=== PATIENT | male | born 1950 | race Caucasian/White ===

== ENCOUNTER 2020-01-15 15:32 | Outpatient (CLI) | payer MEDICARE, SELFPAY ==
--- NOTE | ~2020-01-15 | XR_ITS ---
XR_CERV2-3V_CR 01/15/2020 15:59 Indication: Neck pain Procedure: 3 views cervical spine Comparison: No prior studies for comparison. Findings: Straightening of cervical lordosis. No prevertebral soft tissue abnormality. There is disc narrowing at C5-6 and C6-7. No significant alteration of alignment with flexion. Lung apices are norm al. There is moderate multilevel facet and uncinate hypertrophy most pronounced at C5-6. There is deg enerative anterolisthesis at C4-5. Impression: 1: Moderate cervical spondylosis. Reviewed, dictated and finalized at location A. Impression: 1: Moderate cervical spondylosis.
== END 2020-01-15 15:33 | disposition home or self-care (01) ==
LOC: ANHIMG 15:33
PROVIDERS: PCP Family Medicine
DX: M79.602 Pain in left arm (principal); M47.812 Spondylosis without myelopathy or radiculopathy, cervical region
CPT/HCPCS: 72040

== ENCOUNTER → 2022-03-28 13:54 | Outpatient (CLI) | payer MEDICARE, SELFPAY ==
--- NOTE | ~2022-03-28 | CT_ITS ---
EXAMINATION: CT brain wo/w con DATE: 03/28/2022 14:34 INDICATION: Dizziness and giddiness. Loss of balance. TECHNIQUE: Computed tomography (CT) of the head was performed without and with 100 mL Omnipaque 350 i ntravenous contrast. The mA was adjusted according to patient size. Iterative reconstruction techniqu e was employed. The dose-length product was 1199.14 mGy-cm. COMPARISON: None FINDINGS: Subjective dolichocephaly is noted. There is no intracranial hemorrhage, acute infarction, or abnormal intracranial mass lesion. There are linear areas of chronic encephalomalacia in the front al lobes. There are scattered areas of low attenuation in the cerebral white matter. The ventricles a re normal in size. The orbits are normal. There is mild mucosal thickening in the ethmoid sinuses. Th e mastoid air cells are normal. IMPRESSION: 1. Linea areas of chronic encephalomalacia in the frontal lobes, which may be from old ventriculostom y catheters. Reviewed, dictated and finalized at location A. IMPRESSION: 1. Linea areas of chronic encephalomalacia in the frontal lobes, which may be f rom old ventriculostomy catheters.
[2022-03-28 14:22] LABS: Estimated Glomerular Filt Rate > 60
== END ==
PROVIDERS: PCP Internal Medicine; Visit Provider Internal Medicine
DX: R42 Dizziness and giddiness (principal)
CPT/HCPCS: 70470; Q9967

== ENCOUNTER → 2022-03-30 12:43 | Outpatient (CLI) | payer MEDICARE, SELFPAY ==
--- NOTE | ~2022-03-30 | US_ITS ---
EXAMINATION: US carotid duplex BI DATE: 03/30/2022 13:20 INDICATION: Dizziness and confusion TECHNIQUE: Grayscale, color Doppler, and pulsed Doppler images of the cervical carotid arteries were obtained. The degree of vessel stenosis is placed in one of the following categories: normal, <50%, 5 0-69%, >=70% but less than near-occlusion, near-occlusion, or total occlusion. Note that percent sten osis relative to normal distal artery lumen diameter is indirectly measured from velocity measurement s as described by Kevon, et al. Radiology 2003; 229:340-346. Notes: Normal: Peak systolic velocity <125 centimeters/sec and no plaque <50%. Peak systolic velocity <125 ( EDV <40; ICA/CCA PSV ratio <2.0; used these factors only a tandem lesions or low cardiac output or co ntralateral disease) 50-69 %: PSV 125-230 (EDV 40-100; ratio 2-4) >= 70% but less than near occlusion: PSV greater than 230 (EDV > 100; ratio> 4.0) Near Occlusion: PSV that is variable; markedly narrowed lumen Occlusion: Absent flow on color/spectral Doppler and no lumen on damon scale. COMPARISON: None. FINDINGS: RIGHT: The right common carotid artery (CCA) peak systolic velocity (PSV) is 99 cm/s. The right internal car otid artery (ICA) PSV is 73 cm/s. The right ICA end-diastolic velocity (EDV) is 17 cm/s. The right IC A/CCA PSV ratio is 0.7. The external carotid artery (ECA) PSV is 82 cm/s. There is antegrade flow in the right vertebral artery. LEFT: The left CCA PSV is 100 cm/s. The left ICA PSV is 99 cm/s. The left ICA EDV is 22 cm/s. The left ICA/ CCA PSV ratio is 1.0. The ECA PSV is 101 cm/s. There is antegrade flow in the left vertebral artery. IMPRESSION: 1. Less than 50% stenosis in the right internal carotid artery by sonographic criteria. 2. Less than 50% stenosis in the left internal carotid artery by sonographic criteria. Reviewed, dictated and finalized at location A. IMPRESSION: 1. Less than 50% stenosis in the right internal carotid artery by sonographic samira leonardo. 2. Less than 50% stenosis in the left internal carotid artery by sonographic nicci fernandez.
== END ==
PROVIDERS: PCP Internal Medicine; Visit Provider Internal Medicine
DX: R42 Dizziness and giddiness (principal); I65.23 Occlusion and stenosis of bilateral carotid arteries
CPT/HCPCS: 93880

== ENCOUNTER 2022-05-04 07:21 | Outpatient (CLI) | payer MEDICARE, SELFPAY ==
--- NOTE | ~2022-05-04 | CT_ITS ---
EXAMINATION: CTA brain carotid DATE: 05/04/2022 07:50 INDICATION: Dizziness and giddiness. Vestibular insufficiency. TECHNIQUE: Computed tomographic angiography (CTA) of the head was performed without and with 100 mL O mnipaque-350 intravenous contrast. CTA of the neck was performed with intravenous contrast. Automated exposure control and iterative reconstruction technique were employed. The dose-length product was 1 748.80 mGy-cm. Maximum intensity projection and volume rendered 3D-reconstructions were created by eric ro technologist on a separate workstation. COMPARISON: None. FINDINGS: HEAD CTA: There is subjective dolichocephaly. There are linear areas of chronic encephalomalacia in t he frontal lobes. There is no intracranial hemorrhage, acute infarction, or abnormal intracranial mas s lesion. The ventricles are normal in size. The orbits are normal. There is mild mucosal thickening in the ethmoid sinuses. The mastoid air cells are normal. The vertebral arteries are codominant. Ther e is no significant stenosis of basilar artery or the posterior cerebral arteries. There is no signif icant stenosis of the intracranial internal carotid arteries or anterior or middle cerebral arteries. Anterior communicating artery is normal. There is no aneurysm. The posterior communicating arteries are normal. NECK CTA: There is mild scarring at the lung apices. There are no pathologically enlarged lymph nodes . There is no significant stenosis of the vertebral arteries. There is mild plaque in proximal right internal carotid artery. There is 0% stenosis of the proximal right internal carotid artery relative to normal distal artery lumen diameter (NASCET criteria). There is 0% stenosis of the proximal left i nternal carotid artery relative to normal distal artery lumen diameter. There is severe cervical spon dylosis. IMPRESSION: 1. Linear areas of chronic encephalomalacia in the frontal lobes, which may be from old ventriculosto my catheters. 2. No aneurysm or significant intracranial arterial stenosis. 3. 0% stenosis of the proximal internal carotid arteries relative to normal distal artery lumen diame ters (NASCET criteria). Reviewed, dictated and finalized at location A. IMPRESSION: 1. Linear areas of chronic encephalomalacia in the frontal lobes, which may be from old ventriculostomy catheters. 2. No aneurysm or significant intracranial arterial stenosis. 3. 0% stenosis of the proximal internal carotid arteries relative to normal dis henny artery lumen diameters (NASCET criteria).
[2022-05-04 07:44] LABS: Estimated Glomerular Filt Rate > 60
== END 2022-05-04 07:22 | disposition home or self-care (01) ==
PROVIDERS: PCP Internal Medicine; Visit Provider Student in an Organized Health Care Education/Training Program
DX: R42 Dizziness and giddiness (principal)
CPT/HCPCS: 70496; 70498; Q9967

== ENCOUNTER 2022-05-24 07:43 | Outpatient (CLI) | payer MEDICARE, SELFPAY ==
--- NOTE | ~2022-05-24 | MR_ITS ---
EXAMINATION: MR brain/brain stem wo/w con DATE: 05/24/2022 08:34 INDICATION: Severe vertigo. TECHNIQUE: Magnetic resonance imaging (MRI) of the brain and brainstem was performed without and with 20 mL MultiHance intravenous contrast. COMPARISON: Head CT 05/04/2022 FINDINGS: There is subjective dolichocephaly. There are scattered areas of nonspecific increased T2-w eighted signal intensity in the cerebral white matter, which is within normal limits for the patient' s age. There are linear areas of chronic encephalomalacia in the frontal lobes. There is no intracran ial hemorrhage, acute infarction, or abnormal intracranial mass lesion. The ventricles are normal in size. The paranasal sinuses are clear. The orbits are normal. The mastoid air cells are normal. IMPRESSION: 1. Linear areas of chronic encephalomalacia in the frontal lobes, which may be from old ventriculosto my catheters. Reviewed, dictated and finalized at location A. IMPRESSION: 1. Linear areas of chronic encephalomalacia in the frontal lobes, which may be from old ventriculostomy catheters.
== END 2022-05-24 07:44 | disposition home or self-care (01) ==
PROVIDERS: PCP Internal Medicine; Visit Provider Student in an Organized Health Care Education/Training Program
DX: R42 Dizziness and giddiness (principal); G93.89 Other specified disorders of brain
CPT/HCPCS: 70553; A9577

== ENCOUNTER 2022-06-26 13:30 | Outpatient (RCR) | payer MEDICARE, SELFPAY ==
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
--- NOTE | 2022-06-26 16:38 | PTOPDC ---
Assessment and note entered by Shakila Spicer, PT Discharge Information Assessment Status Discharge Diagnosis Vertigo Onset prior to 11/2021 Subjective Information Prior to medication, was not making any progress with dizziness. Saw ENT on 06/21, received Prednisone Steroids 14 day pack. Is on day 5, of these. Day 4 slept better, woke up more alert with a slight dizziness and felt like head cleared up. Today woke up with a slight dizziness but is better. Has also vcut back on sodium. Notes has also gone away on it's own before. Reported Pain Level Pain Score 0: Self Report Assessment PT Clinical Summary Pt has attended therapy consistently, unfortunately with now change in vertigo symptoms. He attended an ENT appt on 06/21, recieved a 14 day prednisone pack, is on day 5 and has seen significant improvements. Pt has shown improvement in cervical ROM, and muscle extensibility however as he has made no progress with therapy, we are discharging him from this POC at this time. Plan of Care PT Services Indicated No
== END 2022-06-27 11:44 | disposition home or self-care (01) ==
LOC: ANHPT 13:30
PROVIDERS: PCP Internal Medicine; Visit Provider Student in an Organized Health Care Education/Training Program
DX: R42 Dizziness and giddiness (principal)
CPT/HCPCS: 97110; 97140; 97162

== ENCOUNTER 2022-08-08 13:36 | Outpatient (CLI) | payer MEDICARE, SELFPAY ==
--- NOTE | 2022-08-08 14:27 | ECHO_ITS ---
Patient Info Name: Augustine Padilla Age: 71 years : 1950 Gender: Male Ht: 64 in Wt: 168 lbs BSA: 1.88 m2 HR: 69 bpm BP: 137 / 83 mmHg Technical Quality: Good Exam Date: 08/08/2022 2:46 PM Exam Location: [facility] Patient Status: Outpatient Admit Date: 08/08/2022 Staff Ordering Physician: Марина Hou MD Piano Mechanic Apprentice: Ana Marcano RCS Attending Provider: Марина Hou MD Exam Type: CA echo doppler w bubble study Study Info Indications - DIZZINESS LIGHTHEADEDNESS Complete two-dimensional, color flow and Doppler transthoracic echocardiogram is performed with agitated saline. Contrast/Agitated Saline Contrast/Ag. Saline: Agitated Saline Amount: 20.00 ml Administered By: Rimma Guo RDCS Existing IV Access: No New IV Access: Outer Forearm and Left Site Condition: IV removed Summary 1. Left ventricular chamber dimension is normal. 2. Left ventricular systolic function is normal, estimated at 60-65%. 3. The left ventricular diastolic function is grade I diastolic dysfunction. 4. E/e' 10 is mildly elevated. 5. There is mild aortic valve sclerosis. 6. There is trace mitral valve regurgitation. 7. No pulmonary hypertension, estimated pulmonary arterial systolic pressure is 22 mmHg. Left Ventricle E/e' 10 is mildly elevated. Left ventricular chamber dimension is normal. Left ventricular systolic function is normal, estimated at 60-65%. The left ventricular diastolic function is grade I diastolic dysfunction. Right Ventricle Right ventricular chamber dimension is normal. Right ventricular systolic function is normal. Left Atria Left atrial chamber dimension is normal. Right Atria Right atrial chamber dimension is normal. Atrial Septum Agitated saline injection with and without valsalva maneuver opacified right side cardiac chambers without shunt to left side cardiac chambers. Intact interatrial septum visualized by 2D and agitated saline imaging. Aortic Valve The aortic valve is trileaflet. There is mild aortic valve sclerosis. There is no aortic valve stenosis. There is no aortic valve regurgitation. Pulmonic Valve There is no pulmonic regurgitation. Mitral Valve There is no mitral valve stenosis. There is trace mitral valve regurgitation. Tricuspid Valve There is no tricuspid valve regurgitation. No pulmonary hypertension, estimated pulmonary arterial systolic pressure is 22 mmHg. Pericardium/Pleural There is no pericardial effusion. Inferior Vena Cava Normal inferior vena cava with >50% collapse upon inspiration consistent with normal right atrial pressure, 5 mmHg. Aorta The aortic root size at the sinus of Valsalva is normal. Left Ventricular Outflow Tract Name Value Normal LVOT 2D LVOT Diameter 2.0 cm LVOT Doppler LVOT Peak Gradient 4 mmHg LVOT Mean Gradient 2 mmHg LVOT VTI 17 cm LVOT VTI/AV VTI Ratio 0.8 LVOT Stroke Volume
--- NOTE | 2022-08-08 14:36 | ECG_ITS ---
Rate [place] QRSd QT QTc P QRS T Severity 58 175 98 [phone] 42 -59 -2 Abnormal ECG SINUS BRADYCARDIA LEFT ANTERIOR FASCICULAR BLOCK BORDERLINE T WAVE ABNORMALITY- INFERIOR LEADS BORDERLINE ECG NO PREVIOUS ECG AVAILABLE FOR COMPARISON Electronically Signed On 08-08-2022 15:47:21 CLOTH MERCERIZER BACK TENDER by Donn RAMSEY
== END 2022-08-08 13:37 | disposition home or self-care (01) ==
PROVIDERS: PCP Internal Medicine; Visit Provider Student in an Organized Health Care Education/Training Program
DX: R26.89 Other abnormalities of gait and mobility (principal); R42 Dizziness and giddiness; E78.5 Hyperlipidemia, unspecified; R55 Syncope and collapse
CPT/HCPCS: 93005; 93306; 96375

== ENCOUNTER 2025-02-10 10:57 | Outpatient (CLI) | payer MEDICARE, SELFPAY ==
--- NOTE | ~2025-02-10 | MR_ITS ---
MRI of the brain Clinical History: Personal history of healed injury Technique: Axial and sagittal T1-weighted images were acquired. These were followed by axial T2-weigh albert, diffusion weighted, gradient, and FLAIR images. COMPARISON: 05/24/2022 Findings: No acute infarct, internal hemorrhage or mass lesion evident. There are a few tiny scattere d foci of hyperintense signal in the periventricular matter, compatible with chronic low risk ischemi c change. There are 2 more prominent focal areas of T2/FLAIR hyperintensity adjacent to the frontal h orns of the lateral ventricles bilaterally, which could reflect prior ventriculostomy shunt catheter tracts. Ventricles and subarachnoid spaces are unremarkable. Orbits are unremarkable. Paranasal sinuses and m astoid air cells are clear. Major intracranial flow voids are intact. Sagittal midline structures are intact. IMPRESSION: No acute infarct, intracranial hemorrhage, or definite mass lesion. Postcontrast imaging required to better exclude small mass. 2 somewhat prominent areas of T2/FLAIR hyperintensity adjacent to the frontal horns of the bilateral lateral ventricles, suggestive of prior ventriculostomy shunt catheter tracts. Correlate with relevan t clinical history. Again, postcontrast imaging should be considered to better evaluate these finding s. Background minimal chronic microvascular ischemic change. Reviewed, dictated and finalized at location M. IMPRESSION: No acute infarct, intracranial hemorrhage, or definite mass lesion. Postcontras t imaging required to better exclude small mass. 2 somewhat prominent areas of T2/FLAIR hyperintensity adjacent to the frontal h orns of the bilateral lateral ventricles, suggestive of prior ventriculostomy s valdes catheter tracts. Correlate with relevant clinical history. Again, postcont rast imaging should be considered to better evaluate these findings. Background minimal chronic microvascular ischemic change.
== END 2025-02-10 10:58 | disposition home or self-care (01) ==
LOC: MICIMG 10:57
PROVIDERS: PCP Internal Medicine; Visit Provider Psychiatry & Neurology Neurology
DX: R90.82 White matter disease, unspecified (principal); Z87.828 Personal history of other (healed) physical injury and trauma
CPT/HCPCS: 70551

== ENCOUNTER 2025-03-17 13:03 | Outpatient (CLI) | payer MEDICARE, SELFPAY ==
--- OUTSIDE RECORDS SUMMARY | 2025-03-17 13:11 | XMS_ITS | Encounter Summary ---
Author Organization [email or web address] Address 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
--- OUTSIDE RECORDS SUMMARY | 2025-03-17 13:11 | XMS_ITS | Referral Summary ---
Author Organization [facility] Address [address] [place] [id number] Care Team Providers Care Rn Staff Name Role Phone Paul Boles MD Primary Care Provider [phone] Allergies No known active allergies Medications amLODIPine (NORVASC) 5 mg tablet 03/24/2020 Active cetirizine 10 mg capsule daily Active methylPREDNISolo ne (MEDROL DOSEPACK) 4 mg Dosepack 01/21/2020 Active multivitamin tablet Take 1 tablet by mouth daily Active traMADoL (ULTRAM) 50 mg tablet 01/21/2020 Active vilazodone (VIIBRYD) 40 mg tablet 40 mg daily Active diclofenac DR (VOLTAREN) 50 mg EC tablet Take 1 tablet (50 mg total) by mouth 2 (two) times a day Take with food 60 tablet 04/19/2020 Active meloxicam (MOBIC) 7.5 mg tablet Take 7.5 mg by mouth daily 06/29/2020 Active Active Problems No known active problems Social History Tobacco Use Types Packs/Day Years Used Date Smoking Tobacco: Never Smokeless Tobacco: Never Alcohol Use Standard Drinks/Week Comments Yes 0 (1 standard drink = 0.6 oz pur e alcohol) Personal Safety Answer Date Recorded Getting School Help Needed Not on file 11/23 Sex and Gender Information Value Date Recorded Sex Assigned at Not on file Legal Sex Male 12:12 PM CDT Gender Identity Not on file Sexual Orientation Straight 04/07/2020 1: 36 PM CDT Last Filed Vital Signs Vital Sign Reading Time Taken Comments Blood Pressure 159/98 07/21/2020 9:23 AM KINDERGARTEN ASSISTANT Pulse 74 07/21/2020 9:23 AM KINDERGARTEN ASSISTANT Temperature 36.3 C (97.3 F) 07/21/2020 7:59 AM KINDERGARTEN ASSISTANT Respiratory Rate 16 07/21/2020 9:23 AM KINDERGARTEN ASSISTANT Oxygen Saturation 100% 07/21/2020 9:23 AM KINDERGARTEN ASSISTANT Inhaled Oxygen Concentration - - Weight 77.1 kg (170 lb) 07/21/2020 7:59 AM KINDERGARTEN ASSISTANT Height 162.6 cm (5' 4) 07/11/2020 8:01 AM KINDERGARTEN ASSISTANT Body Mass Index 29.18 07/11/2020 8:01 AM KINDERGARTEN ASSISTANT Plan of Treatment Not on file Goals Goal Patient Goal Type Associated Problems Recent Progress Patient-Stated? Author CCM Chronic Pain Care Plan Chronic Care Management No Mikala Ernst, RN Note: Problem: Chronic Pain Goals: 1. Minimize further functional decline 2. Maximize quality of life 3. Control pain Strategies: - Activity/exercise program recommendation - Conservative stepwise pain medicine strategy with multi-disciplinary approach - Recommend healthy lifestyle strategies and compensatory methods as needed Reduce the likelihood of falling Lifestyle No Mikala Ernst, RN Note: Below are four things you can do to prevent falls: Begin an exercise program to improve your leg strength & balance Ask your doctor or pharmacist to review your medicines Get annual eye check-ups & update your eyeglasses Make your home safer by: Removing clutter & tripping hazards Putting railings on all stairs & adding grab bars in the bathroom Having good lighting, especially on stairs Contact your local community or senior center for information on exercise, fall prevention programs, or options for improving home safety. Insurance AETNA MEDICARE AETNA MEDICARE Care Teams Rn Staff Relationship Specialty Start Date End Date Paul Boles MD PCP - General 04/19/20
--- OUTSIDE RECORDS SUMMARY | 2025-03-17 13:11 | XMS_ITS | Clinical Summary ---
Author Organization [facility] Address [address] [place] [id number] Care Team Providers Care Pathology Laboratory Director Name Role Phone Paul Boles MD Primary Care Provider [phone] Allergies No known active allergies Medications amLODIPine [...] Active Active Problems No known active problems Surgical History Surgery Date Site/Laterality Comments TONSILLECTOMY Medical History Medical History Date Comments Depression Hypercholesteremia Migraines Arm pain Family History Medical History Relation Name Comments Alcohol abuse Father Relation Name Status Comments Father Social History Tobacco Use Types Packs/Day Years [...] Orientation Straight 04/07/2020 1: 36 PM CDT Obstetrics History Last Filed Vital Signs Vital Sign Reading Time Taken Comments Blood Pressure 159/98 07/21/2020 9:23 AM FIXTURE REPAIRER FABRICATOR Pulse 74 07/21/2020 9:23 AM FIXTURE REPAIRER FABRICATOR Temperature 36.3 C (97.3 F) 07/21/2020 7:59 AM FIXTURE REPAIRER FABRICATOR Respiratory Rate 16 07/21/2020 9:23 AM FIXTURE REPAIRER FABRICATOR Oxygen Saturation 100% 07/21/2020 9:23 AM FIXTURE REPAIRER FABRICATOR Inhaled Oxygen Concentration - - Weight 77.1 kg (170 lb) 07/21/2020 7:59 AM FIXTURE REPAIRER FABRICATOR Height 162.6 cm (5' 4) 07/11/2020 8:01 AM FIXTURE REPAIRER FABRICATOR Body Mass Index 29.18 07/11/2020 8:01 AM FIXTURE REPAIRER FABRICATOR Plan of Treatment Not on file Goals Goal Patient Goal Type Associated Problems Recent Progress Patient-Stated? Author CCM Chronic Pain Care Plan Chronic Care Management Mikala Hayes, RN Note: Problem: Chronic Pain Goals: 1. Minimize further functional decline 2. Maximize quality of life 3. Control pain Strategies: - Activity/exercise program recommendation - Conservative stepwise pain medicine strategy with multi-disciplinary approach - Recommend healthy lifestyle strategies and compensatory methods as needed Reduce the likelihood of falling Lifestyle Mikala Hayes, RN Note: Below are four things you [...] Insurance AETNA MEDICARE AETNA MEDICARE Care Teams Pathology Laboratory Director Relationship Specialty Start Date End Date Paul Boles MD PCP - General 04/19/20
--- OUTSIDE RECORDS SUMMARY | 2025-03-17 13:11 | XMS_ITS | Clinical Summary ---
Author Organization 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 Equate allergy relief Active amLODIPine (NORVASC) 5 mg tablet Take 5 mg by mouth daily. Active vilazodone (VIIBRYD) 40 mg Tablet 40 mg daily. Active multivitamin (DAILY-NICK) tablet Take 1 Tablet by mouth daily. Active Active Problems No known active problems Family History Medical History Relation Name Comments Other Maternal Grandmother Tobacco Use Other Sister Tobacco Use Relation Name Status Comments Maternal Grandmother Sister Social History Tobacco Use Types Packs/Day Years Used Date Smoking Tobacco: Never Smokeless Tobacco: Never Alcohol Use Standard Drinks/Week Comments Yes 0 (1 standard drink = 0.6 oz pure alcohol) Couple of Gin & [place] Juice per day. Sex and Gender Information Value Date Recorded Sex Assigned at Not on file Legal Sex Male 3:48 AM [employer] Gender Identity Not on file Sexual Orientation Not on file Last Filed Vital Signs Vital Sign Reading Time Taken Comments Blood Pressure 141/93 04/18/2020 10:15 AM CDT Pulse 76 04/18/2020 10:15 AM CDT Temperature 36.6 C (97.9 F) 04/18/2020 10:15 AM CDT Respiratory Rate - - Oxygen Saturation - - Inhaled Oxygen Concentration - - Weight 80.7 kg (178 lb) 04/18/2020 10:15 AM CDT Height 160 cm (5' 3) 04/18/2020 10:15 AM CDT Body Mass Index 31.53 04/18/2020 10:15 AM CDT Plan of Treatment Health Maintenance Due Date Last Done Comments DTAP/TDAP/TD VACCINES (1 - Tdap) 1971 COLORECTAL SCREENING 1997 Colorectal Cancer Screening 1997 FIT-DNA Q 3 years 1997 FIT/FOBT Q 1 year 1997 Flex Sig/CT Colonography Q 5 years 1997 ZOSTER VACCINE (1 of 2) 2002 PNEUMOCOCCAL VACCINE 50+ YEARS (2 of 2 - PPSV23) 10/1310/13/2019 INFLUENZA VACCINE (#1) 2025 RSV VACCINE (60+ or ) (1 - 1-dose 75+ series) 2027 Insurance [employer] PPO MCR Care Teams Biofuels Production Technician Relationship Specialty [place] [address] [place] [id number] PCP - General Internal Medicine 04/04/20
--- OUTSIDE RECORDS SUMMARY | 2025-03-17 13:11 | XMS_ITS | Data Portability ---
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 Plan of Treatment Reminders Order Date Submit Date Provider Last Modified By Organization Details Last Modified Time Details Appointments Any 15 2024 11:00A M Navin Boles MD Not available Not available Not available Lab CMP, serum or plasma 2023 024 [facility] (Lab), [address] [place], [address], 09/21/2024 19:42:22 CBC w/ auto diff 2023 024 [facility] (Lab), [address] [place], [address], 09/21/2024 19:27:09 TSH, serum or plasma 2023 024 [facility] (Lab), [address] [place], [address], 09/21/2024 20:13:43 lipid panel, serum 2023 024 [facility] (Lab), [address] [place], [address], 09/21/2024 19:42:26 TSH, serum or plasma 2023 024 [facility] (Lab), [address] [place], [address], 12/31/2023 20:53:46 T3, free, serum or plasma 2023 024 [facility] (Lab), [address] [place], [address], 12/31/2023 20:49:08 Referral None recorded. Procedures colonosco py screening (PROC) - Please call patient to schedule an appointme nt. Thank you. 2024 025 [facility], [address] [facility] [address], [place], [address], 01/14/2025 12:38:37 Surgeries None recorded. Imaging None recorded. Medication Orders None recorded. Patient TargetsNo targets recorded. Patient Instructions Encounter Date Encounter Id Patient Instructions Last Modified By Organization Details Last Modified Time 05/06/2024 [id number] dementia rating scale-2* Not available 05/06/2024 14:46:53 alcohol misuse* Not available 05/06/2024 14:46:53 depression screening* Not available 05/06/2024 14:46:53 multi-dimensiona l health assessment questionnaire* Not available 05/06/2024 14:46:53 Personalized [facility] Plan and Screening Recommendations Advance Directives - Do you have one? Yes I recommend consulting with an Insurance Policy Clerk, family member, or friend to assist you. Advance Directives - Do we have your advance directive on file in your health record? No, please bring in a copy at your earliest convenience Primary Prevention/Interven tion (prevents or decreases the chance of common diseases from occurring) Smoking Risk: Non Smoker Alcohol Misuse Screening: Negative Weight: Overweight try to lose 10% of your body weight Physical activity: Need more exercise/physical activity minimum of 10-20 minutes of activity that causes mild breathlessness/day Nutrition: Average Refer to attached handout DASH Diet: After Your Visit Fall Risk (screened today): Low Vaccines Pneumococcal: No further needed Influenza: Your next one in the fall of this year Chronic Disease Risks Stroke: Intermediate Risk Active diagnosis, Continue current treatment plan Heart Attack: Intermediate Risk Active diagnosis, Continue current treatment plan Clogging of the Arteries: Intermediate Risk Active diagnosis, Continue current treatment plan Diabetes: Low Risk I have no recommendations Secondary Prevention/Interven tion (detects treatable diseases before they may cause symptoms, disability, or ) Prostate Cancer Screening: Your next PSA screen at next visit Colon Cancer Screening: Colonoscopy Date Screening Last Performed: 2013 Eye Disease Screening: No Eye exam necessary Dementia Risk: Intermediate My recommendation would be to have an appointment with the Neurologist Depression Screening: Positive Active diagnosis, Continue current treatment plan [email or web address] Not available 05/06/2024 13:29:47 discussed to get hearing aids, see neurology Not available 05/06/2024 11:23:17 08/27/2024 [id number] discussed to get hearing aids, see neurology [email or web address] Not available 08/27/2024 15:21:34 12/30/2024 [id number] discussed to get hearing aids, see neurology [email or web address] Not available 12/30/2024 14:24:05 Reason for Referral None Reported. Results Created Date Observation Date Name Description Value Unit Range Abnormal Flag Note LastModifiedBy Organization Detail LastModifiedTime 10/10/19 24 10/10/2023 TSH thyroid-stim ulating hormone 4.830 uIU/m L 0.465- 4.680 high Not Available [facility] (Lab) [address] [place], [address], 10/10/2023 21:42:57 12/31/19 24 12/31/2023 T3 FREE free T3 3.5 pg/mL 2.77-5 .27 Not Available [facility] (Lab) [address] [place], [address], 12/31/2023 20:49:08 12/31/19 24 12/31/2023 TSH thyroid-stim ulating hormone 1.370 uIU/m L 0.465- 4.680 Not Available [facility] (Lab) [address] [place], [address], 12/31/2023 20:53:46 09/21/19 25 09/21/2024 CBC/C OMPLE TE BLD COUNT W/DIF F white blood cells 7.2 x10'3 /uL 4.2-10 .8 Not Available [facility] (Lab) [address] [place], [address], 09/21/2024 19:27:09 09/21/19 25 09/21/2024 CBC/C OMPLE TE BLD COUNT W/DIF F red blood cells 4.74 x10'6 /uL 4.10-5 .80 Not Available [facility] (Lab) [address] [place], [address], 09/21/2024 19:27:09 09/21/19 25 09/21/2024 CBC/C OMPLE TE BLD COUNT W/DIF F hemoglobin 14.3 g/dL 13.2-1 7.0 Not Available [facility] (Lab) [address] [place], [address], 09/21/2024 19:27:09 09/21/19 25 09/21/2024 CBC/C OMPLE TE BLD COUNT W/DIF F hematocrit 43.6 % 39.3-5 0.0 Not Available [facility] (Lab) [address] [place], [address], 09/21/2024 19:27:09 09/21/19 25 09/21/2024 CBC/C OMPLE TE BLD COUNT W/DIF F mean red cell volume 92.0 fL 80.0-9 7.0 Not Available [facility] (Lab) [address] [place], [address], 09/21/2024 19:27:09 09/21/19 25 09/21/2024 CBC/C OMPLE TE BLD COUNT W/DIF F mean red cell hemoglobin 30.2 pg 27.0-3 3.0 Not Available [facility] (Lab) [address] [place], [address], 09/21/2024 19:27:09 09/21/19 25 09/21/2024 CBC/C OMPLE TE BLD COUNT W/DIF F mean RBC HGB concentratio n 32.8 g/dL 31.0-3 6.0 Not Available [facility] (Lab) [address] [place], [address], 09/21/2024 19:27:09 09/21/19 25 09/21/2024 CBC/C OMPLE TE BLD COUNT W/DIF F red cell distribution width 13.0 % 11.8-1 5.5 Not Available [facility] (Lab) [address] [place], [address], 09/21/2024 19:27:09 09/21/19 25 09/21/2024 CBC/C OMPLE TE BLD COUNT W/DIF F platelets 333 x10'3 /uL 150-40 0 Not Available [facility] (Lab) [address] [place], [address], 09/21/2024 19:27:09 09/21/19 25 09/21/2024 CBC/C OMPLE TE BLD COUNT W/DIF F mean platelet volume 9.1 fL 9.0-12 .4 Not Available [facility] (Lab) [address] [place], [address], 09/21/2024 19:27:09 09/21/19 25 09/21/2024 CBC/C OMPLE TE BLD COUNT W/DIF F neutrophils 73.3 % 39.0-7 2.0 high Not Available [facility] (Lab) [address] [place], [address], 09/21/2024 19:27:09 09/21/19 25 09/21/2024 CBC/C OMPLE TE BLD COUNT W/DIF F lymphocytes 15.8 % 16.0-4 7.0 low Not Available [facility] (Lab) [address] [facility] [place], [address], 09/21/2024 19:27:09 09/21/19 25 09/21/2024 CBC/C OMPLE TE BLD COUNT W/DIF F monocytes 7.4 % 5.0-12 .0 Not Available [facility] (Lab) [address] [place], [address], 09/21/2024 19:27:09 09/21/19 25 09/21/2024 CBC/C OMPLE TE BLD COUNT W/DIF F eosinophils 1.9 % 1.0-7. 0 Not Available [facility] (Lab) [address] [place], [address], 09/21/2024 19:27:09 09/21/19 25 09/21/2024 CBC/C OMPLE TE BLD COUNT W/DIF F basophils 1.3 % 0.0-2. 0 Not Available [facility] (Lab) [address] [place], [address], 09/21/2024 19:27:09 09/21/19 25 09/21/2024 CBC/C OMPLE TE BLD COUNT W/DIF F immature granulocytes 0.3 % 0.00-0 .50 Not Available [facility] (Lab) [address] [place], [address], 09/21/2024 19:27:09 09/21/19 25 09/21/2024 CBC/C OMPLE TE BLD COUNT W/DIF F neutrophils, absolute count 5.28 x10'3 /uL 1.5-8. 0 Not Available [facility] (Lab) [address] [place], [address], 09/21/2024 19:27:09 09/21/19 25 09/21/2024 CBC/C OMPLE TE BLD COUNT W/DIF F lymphocytes, absolute count 1.14 x10'3 /uL 1.07-3 .43 Not Available [facility] (Lab) [address] [place], [address], 09/21/2024 19:27:09 09/21/19 25 09/21/2024 CBC/C OMPLE TE BLD COUNT W/DIF F monocytes, absolute count 0.53 x10'3 /uL 0.29-0 .99 Not Available [facility] (Lab) [address] [place], [address], 09/21/2024 19:27:09 09/21/19 25 09/21/2024 CBC/C OMPLE TE BLD COUNT W/DIF F eosinophils, absolute count 0.14 x10'3 /uL 0.02-0 .53 Not Available [facility] (Lab) [address] [place], [address], 09/21/2024 19:27:09 09/21/19 25 09/21/2024 CBC/C OMPLE TE BLD COUNT W/DIF F basophils, absolute count 0.09 x10'3 /uL 0.01-0 .08 high Not Available [facility] (Lab) [address] [place], [address], 09/21/2024 19:27:09/21/19 25 09/21/2024 CBC/C OMPLE TE BLD COUNT W/DIF F immature granulocytes ,absolute 0.02 x10'3 /uL 0.00-0 .05 Not Available [facility] (Lab) [address] [place], [address], 09/21/2024 19:27:09/21/19 25 09/21/2024 CBC/C OMPLE TE BLD COUNT W/DIF F nucleated red blood cells 0.0 % -0 Not Available [facility] (Lab) [address] [place], [address], 09/21/2024 19:27:09 09/21/19 25 09/21/2024 CBC/C OMPLE TE BLD COUNT W/DIF F NRBC# 0.00 x10'3 /uL Not Available [facility] (Lab) [address] [place], [address], 09/21/2024 19:27:09 09/21/19 25 09/21/2024 COMPR EHENS NIK METAB OLIC PANEL sodium 140 mmol/ L 137-14 5 Not Available [facility] (Lab) [address] [place], [address], 09/21/2024 19:42:22 09/21/19 25 09/21/2024 COMPR EHENS NIK METAB OLIC PANEL potassium 4.6 mmol/ L 3.5-5. 1 Not Available [facility] (Lab) [address] [place], [address], 09/21/2024 19:42:22 09/21/19 25 09/21/2024 COMPR EHENS NIK METAB OLIC PANEL chloride 105 mmol/ L 98-107 Not Available [facility] (Lab) [address] [place], [address], 09/21/2024 19:42:22 09/21/19 25 09/21/2024 COMPR EHENS NIK METAB OLIC PANEL carbon dioxide 29 mmol/ L 22-30 Not Available [facility] (Lab) [address] [place], [address], 09/21/2024 19:42:22 09/21/19 25 09/21/2024 COMPR EHENS NIK METAB OLIC PANEL anion gap 10.6 mmol/ L 14-22 low Not Available [facility] (Lab) [address] [place], [address], 09/21/2024 19:42:22 09/21/19 25 09/21/2024 COMPR EHENS NIK METAB OLIC PANEL glucose 87 mg/dL 70-99 Not Available [facility] (Lab) [address] [place], [address], 09/21/2024 19:42:22 09/21/19 25 09/21/2024 COMPR EHENS NIK METAB OLIC PANEL BUN 16 mg/dL 8-19 Not Available [facility] (Lab) [address] [place], [address], 09/21/2024 19:42:22 09/21/19 25 09/21/2024 COMPR EHENS NIK METAB OLIC PANEL creatinine 1.01 mg/dL 0.66-1 .25 Not Available [facility] (Lab) [address] [place], [address], 09/21/2024 19:42:22 09/21/19 25 09/21/2024 COMPR EHENS NIK METAB OLIC PANEL GFR >60 Refer ence Range : Gruver ge GFR Healt hy Adult : >60 mL/mi n/1.7 3 m2 Chron ic Kidne y Disea se: 15-60 mL/mi n/1.7 3 m2 Kidne y Failu re: <15/m L/min /1.73 m2 www.n iddk. nih.g ov The MDRD study equat ion has not been valid ated in child christopher <18 years of age; pregn ant women ; the elder ly >85 years of age; or in some racia l or ethni c subgr oups, such as Hisma nics. Outsi de the valid ated rancho eters , estim ated GFR is less accur ate, requi ring clini niles judgm ent on a case- by-ca se basis . Clini niles inter preta tion for other races and ages must be made by the clini lilo. The MDRD study equat ion has not been valid ated for the evalu ation of serum creat inine relat ed to nutri jarrod l statu s or medic ation usage . For perso ns <18 years of age, a pedia tric GFR calcu lator is avail able on the NK websi te: https ://jenny gomes.jovanna ramirez.precious aly/pr ofess ional s/kdo qi/gf r_cal culat or Not Available [facility] (Lab) [address] [place], [address], 09/21/2024 19:42:22 09/21/19 25 09/21/2024 COMPR EHENS NIK METAB OLIC PANEL alkaline phosphatase 77 U/L 38-126 Not Available [facility] (Lab) [address] [place], [address], 09/21/2024 19:42:22 09/21/19 25 09/21/2024 COMPR EHENS NIK METAB OLIC PANEL alanine aminotransfe rase 44 U/L 0-50 Not Available [facility] (Lab) [address] [place], [address], 09/21/2024 19:42:22 09/21/19 25 09/21/2024 COMPR EHENS NIK METAB OLIC PANEL aspartate aminotransfe rase 42 U/L 15-46 Not Available [facility] (Lab) [address] [place], [address], 09/21/2024 19:42:22 09/21/19 25 09/21/2024 COMPR EHENS NIK METAB OLIC PANEL bilirubin, total 0.90 mg/dL 0.20-1 .30 Not Available [facility] (Lab) [address] [place], [address], 09/21/2024 19:42:22 09/21/19 25 09/21/2024 COMPR EHENS NIK METAB OLIC PANEL calcium 9.1 mg/dL 8.4-10 .2 Not Available [facility] (Lab) [address] [place], [address], 09/21/2024 19:42:22 09/21/19 25 09/21/2024 COMPR EHENS NIK METAB OLIC PANEL total protein 6.7 g/dL 6.3-8. 2 Not Available [facility] (Lab) [address] [place], [address], 09/21/2024 19:42:22 09/21/19 25 09/21/2024 COMPR EHENS NIK METAB OLIC PANEL albumin 4.4 g/dL 3.0-4. 4 Not Available [facility] (Lab) [address] [place], [address], 09/21/2024 19:42:22 09/21/19 25 09/21/2024 COMPR EHENS NIK METAB OLIC PANEL globulin 2.3 g/dL 2.6-4. 2 low Not Available [facility] (Lab) [address] [place], [address], 09/21/2024 19:42:22 09/21/19 25 09/21/2024 COMPR EHENS NIK METAB OLIC PANEL A/G ratio 1.9 ratio 1.0-2. 0 Not Available [facility] (Lab) [address] [place], [address], 09/21/2024 19:42:22 09/21/19 25 09/21/2024 LIPID PANEL cholesterol 146 mg/dL 140-19 9 [facility] NSUS RECOM MENDA TION FOR DAMON STERO L: ADULT CHILD LOW RISK: <200 <170 BORDE RLINE : <200- 239 ----- HIGH RISK: >240 >200 Not Available [facility] (Lab) [address] [place], [address], 09/21/2024 19:42:25 09/21/1909/21/2024 LIPID PANEL triglyceride s 122 mg/dL 0-150 [facility]ERE NSUS REPOR T RECOM MENDA TION FOR TRIGL YCERI ALAYNA: ADULT CHILD LOW RISK: <150 ----- BODER LINE: 150-1 99 ----- HIGH RISK: >200 ----- Not Available [facility] (Lab) [address] [place], [address], 09/21/2024 19:42:25 09/21/19 25 09/21/2024 LIPID PANEL HDL cholesterol 43 mg/dL 40- Not Available [facility] (Lab) [address] [place], [address], 09/21/2024 19:42:25 09/21/19 25 09/21/2024 LIPID PANEL LDL cholesterol, calculated 79 mg/dL 0-130 [facility] CH[facility]ERE NSUS REPOR T RECOM MENDA TIONS FOR LDL: ADULT CHILD LOW RISK <130 <110 (OPTI MAL LDL) <100 ----- BORDE RLINE : 130-1 59 ----- HIGH RISK: >160 >130 A TRIGL YCERI DE RESUL T >400 INVAL IDATE S THE CALCU LATIO N FOR LDL FRACT IONAT ION - THE LDL RESUL T WILL NOT BE REPOR REBECCA. Not Available [facility] (Lab) [address] [place], [address], 09/21/2024 19:42:25 09/21/19 25 09/21/2024 TSH thyroid-stim ulating hormone 1.870 uIU/m L 0.465- 4.680 Not Available [facility] (Lab) [address] [place], [address], 09/21/2024 20:13:43 10/30/19 24 10/29/2023 audio gram + tympa nogra m No observ ation record ed. [email or web address] [facility] [address] [facility] [address] [place], [address], 11/06/2023 09:32:59 11/18/19 24 11/18/2023 audio gram + tympa nogra m No observ ation record ed. [email or web address] Not Available 2023 09:28:31 02/12/20 25 02/10/2025 MRI, brain , w/o contr ast No observ ation record ed. Not Available 2024 13:21:55 Result Notes None recorded. Problems Name Problem SNOMED Code Status Onset Date Resolution Date Notes Provider Name and Address Organization Details Recorded Time Prostate specific antigen outside reference range 691896521 Completed 201903/15/2022 Not Available [facility] 3 21:34:40 Insomnia 949590765 Active 2021 Not Available [facility] 4 06:29:41 Dizziness and giddiness 212393502 Active 2021 Not Available [facility] 4 06:29:41 Finding of body mass index 962584793 Active 2021 Not Available [facility] 4 06:29:41 Hypertrig lyceridem ia 301329268 Active 2019 Not Available [facility] 4 06:29:41 Depressiv e disorder 62742050 Active 2021 Not Available [facility] 4 06:29:41 Prostate specific antigen above reference range 484246316 Active 2019 Not Available [facility] 4 06:29:41 Malignant neoplasm of prostate 042712553 Active 2021 Not Available [facility] 4 06:29:41 Dizziness 485417826 Active 2021 Not Available [facility] 4 06:29:41 Hyperlipi demia 59836061 Active 2019 Not Available [facility] 4 06:29:41 Carotid artery stenosis 00057197 Active 2021 Not Available [facility] 4 06:29:42 Rhinitis 57299682 Active 2021 Not Available [facility] 4 06:29:42 [place] m 3008606 Active 2021 Maureen espinal, RMA null, [place] [employer] [facility] 4 10:57:53 Neck pain 96323892 Active 2021 Not Available [facility] 4 06:29:42 Bilateral hearing loss 28656855 Active 2021 Not Available [facility] 4 06:29:42 Essential hypertens ion 16342131 Active 2022 Maureen Jenkinsvannesamichael kylie RMA null, [employer] [facility] 4 10:57:49 Tinnitus 94730031 Active 2022 Not Available [facility] 4 06:29:41 Memory impairmen t 081221332 Active 2022 Not Available [facility] 4 06:29:41 Hypothyro idism 88938099 Active 2022 Maureen Garzamichael espinal RMA null, [employer] [facility] 4 10:57:46 Sensorine ural hearing loss 59754708 Active 2023 Not Available [facility] 4 06:29:41 Benign paroxysma l positiona l vertigo 722259485 Active 2023 Not Available [facility] 4 06:29:41 Bilateral tinnitus 82853378627 02 Active 2023 Not Available [facility] 4 06:29:41 Vertigo 034144429 Active 2023 Char Joseph MA null, [employer] 4 15:35:19 Problem Notes None recorded. Procedures Surgical History Date Name Laterality Status Provider Name and Address Organization Details Recorded Time 4 Medicare Wellness CPT Code, subsequent completed Drea Luna RN [place] [employer] 05/06/2024 11:25:34 Imaging Results None recorded. Procedure Notes None recorded. Medical Equipment None Reported. Allergies Allergen ID Allergen Name Allergen Category Reaction Reaction Severity Criticality Documentation Date Start Date Code Code System Note Provider Name and Address Organization Details Recorded Time 72766 amoxicill in medicatio n rash Not available Not available 04/12/2023 723 RxNorm Navin Boles MD [address] [place] [address], [phone] [place] [address] [employer] [facility] 3 11:02:00 Medications Name Sig Start Date Stop Date Status Note LastModified by Organization Details LastModified Time amoxicillin 500 mg capsule TAKE 1 CAPSULE BY MOUTH THREE TIMES A DAY 08/12 completed Not Available Not Available Not Available prednisone 10 mg tablet TAKE 1 TABLET BY MOUTH EVERY DAY IN THE MORNING DAYS 1-7 08/10 completed Not Available Not Available Not Available atorvastati n 20 mg tablet TAKE 1 TABLET DAILY active Not Available Not Available No t Available donepezil 5 mg tablet TAKE 1 TABLET BY MOUTH EVERY MORNING active Not Available Not Available No t Available clindamycin HCl 300 mg capsule TAKE 1 CAPSULE BY MOUTH FOUR TIMES A DAY UNTIL FINISHED STOP MEDICATIO N IF DIARRHEA OCCURS 11/14 completed Not Available Not Available Not Available trazodone 50 mg tablet TAKE 1 TABLET DAILY NEEDED 08/12 completed Not Available Not Available Not Available azithromyci n 250 mg tablet TAKE 2 TABLETS BY MOUTH TODAY, THEN TAKE 1 TABLET DAILY FOR 4 DAYS DIRECTED 12/30 completed Not Available Not Available Not Available hydrocodone 5 mg-acetamin ophen 325 mg tablet TAKE 1 TABLET BY MOUTH EVERY 6 HOURS NEEDED active Not Available Not Available No t Available phenazopyri dine 200 mg tablet TAKE 1 TABLET BY MOUTH THREE TIMES DAILY NEEDED FOR BURNING active Not Available Not Available No t Available prednisone 5 mg tablet TAKE 1 TABLET BY MOUTH EVERY DAY IN THE MORNING ON DAYS 8-14 08/10 completed Not Available Not Available Not Available topiramate 25 mg tablet TAKE 1 TABLET BY MOUTH TWICE A DAY 08/12 completed Not Available Not Available Not Available meclizine 12.5 mg tablet TAKE 1 TABLET BY MOUTH 3 TIMES A DAY NEEDED active Not Available Not Available No t Available amlodipine 5 mg tablet TAKE 1 TABLET DAILY active Not Available Not Available No t Available sulfamethox azole 800 mg-trimetho prim 160 mg tablet TAKE 1 TABLET BY MOUTH TWO TIMES DAILY, START 11/26 active Not Available Not Available No t Available tramadol 50 mg tablet Take 1 tablet every 6 hours by oral route as needed. active Not Available Not Available No t Available levothyroxi ne 25 mcg tablet TAKE 1 TABLET BY MOUTH EVERY DAY 10/11 completed Not Available Not Available Not Available meloxicam 7.5 mg tablet TAKE 1 TABLET BY MOUTH EVERY DAY active Not Available Not Available No t Available ceftriaxone 1 gram solution for injection Take 1 g by injection route. 04/12 completed Not Available Not Available Not Available famotidine 20 mg tablet TAKE 1 TABLET BY MOUTH EVERYDAY AT BEDTIME active Not Available Not Available No t Available trazodone 100 mg tablet TAKE 1 TABLET BY MOUTH EVERY DAY AT BEDTIME NEEDED active Not Available Not Available No t Available levothyroxi ne 50 mcg tablet TAKE 1 TABLET BY MOUTH EVERY DAY active Not Available Not Available No t Available Xylocaine 20 mg/mL (2 %) injection solution Take 10 mL by injection route. 12/30 completed Not Available Not Available Not Available diclofenac sodium 50 mg tablet,boo yed release 05/19 completed Not Available Not Available Not Available ibuprofen 600 mg tablet TAKE 1 TABLET BY MOUTH THREE TIMES A DAY active Not Available Not Available No t Available gentamicin 40 mg/mL injection solution Take 80 mg by injection route. 04/12 completed Not Available Not Available Not Available methylpredn isolone 4 mg tablets in a dose pack TAKE 6 TABLETS ON DAY 1 DIRECTED ON PACKAGE AND DECREASE BY 1 TAB EACH DAY FOR A TOTAL OF 6 DAYS active Not Available Not Available No t Available cyclobenzap rine 5 mg tablet Take 1 tablet 3 times a day by oral route. active Not Available Not Available No t Available bupropion HCl XL 300 mg 24 hr tablet, extended release TAKE 1 TABLET BY MOUTH EVERY DAY IN THE MORNING active Not Available Not Available No t Available bupropion HCl XL 150 mg 24 hr tablet, extended release TAKE 1 TABLET BY MOUTH EVERY DAY IN THE MORNING active Not Available Not Available No t Available aripiprazol e 2 mg tablet TAKE ONE TABLET BY MOUTH EVERY MORNING 04/17 completed Not Available Not Available Not Available Suprep Bowel Prep Kit 17.5 gram-3.13 gram-1.6 gram oral solution USE DIRECTED. 10/13 completed Not Available Not Available Not Available vilazodone 40 mg tablet TAKE 1 TABLET BY MOUTH EVERY DAY WITH FOOD active Not Available Not Available No t Available vilazodone 20 mg tablet TAKE 1 TABLET BY MOUTH EVERY DAY WITH FOOD active Not Available Not Available No t Available Allergy Relief (cetirizine ) 10 mg capsule Take 1 capsule every day by oral route. 2019 active Not Available Not Available Not Avai lable biotin 1,000 mcg chewable tablet Take 1 tablet every day by oral route. 01/20 completed Not Available Not Available Not Available One-A-Day Men's 50 Plus(vit K) QD 2019 active Not Available Not Available Not Avai lable ID NOW COVID-19 Test Kit TEST DIRECTED 04/20 completed Not Available Not Available Not Available Fluad Quad [id number](6 5yr up)(PF) 60 mcg (15 mcg x 4)/0.5mL IM syringe PHARMACY ADMINISTE RED active Not Available Not Available No t Available Vitals Date Recorded Body height Body mass index (BMI) Body weight Provider Name and Address Organization Details Last Updated DateTime 10/16/2023 162.56 cm 29.2 kg/m2 92743.7 g Shelbi Benjamin RN [facility] 10/16/2023 11:53:30 Date Recorded Body height Body mass index (BMI) Body weight Body temperature Heart rate Oxygen saturation Oxygen saturation in Arterial blood by Pulse oximetry Systolic And Diastolic Provider Name and Address Organization Details Last Updated DateTime 4 162.56 cm 28.8 kg/m2 31347.5 2 g 96.7 [degF] 75 /min 98 % 98 % 110/70 mm[Hg] Maureen oswald Michael [facility] 4 10:52:31 Date Recorded Body height Body mass index (BMI) Body weight Body temperature Heart rate Oxygen saturation Oxygen saturation in Arterial blood by Pulse oximetry Systolic And Diastolic Provider Name and Address Organization Details Last Updated DateTime 5 162.56 cm 27.5 kg/m2 81174.7 8 g 97.3 [degF] 72 /min 97 % 97 % 124/70 mm[Hg] Maureen oswald Michael [facility] 5 14:22:11 Date Recorded Body height Body mass index (BMI) Body weight Body temperature Heart rate Oxygen saturation Oxygen saturation in Arterial blood by Pulse oximetry Systolic And Diastolic Provider Name and Address Organization Details Last Updated DateTime 4 162.56 cm 28.5 kg/m2 85040.3 3 g 98.2 [degF] 76 /min 98 % 98 % 116/72 mm[Hg] Ana Chakraborty [facility] 4 10:51:05 Date Recorded Body height Body mass index (BMI) Body weight Body temperature Heart rate Oxygen saturation Oxygen saturation in Arterial blood by Pulse oximetry Systolic And Diastolic Provider Name and Address Organization Details Last Updated DateTime 4 162.56 cm 28.7 kg/m2 75265.9 3 g 97.5 [degF] 85 /min 96 % 96 % 120/60 mm[Hg] Maureen Garza margret [employer] 4 15:20:47 Social History Question Answer Notes LastModified by Organization Details LastModified Time Tobacco Smoking Status Never Smoker Charmaine [email or web address] [employer] 04/17/2023 10:10:43 Do You Have An Advance Directive? Yes Requested Copy To Bring To Office [email or web address] Information not available 05/06/2024 How Many Years Have You Consumed Alcohol? 53 Age 20 [email or web address] Information not available 05/06/2024 Do You Wear A Helmet When Biking? Yes No Longer Rides [email or web address] Information not available 05/06/2024 Are You Blind Or Do You Have Difficulty Seeing? No Information not available 04/17/2023 Is Blood Transfusion Acceptable In An Emergency? Yes [email or web address] Information not available 05/06/2024 What Is Your Level Of Caffeine Consumption? Moderate [id number] Information not available 11/07/2022 Are You Deaf Or Do You Have Serious Difficulty Hearing? Yes Has Seen ENT And Swage Tender [email or web address] Information not available 05/06/2024 What Type Of Diet Are You Following? REGULAR [id number] Information not available 11/07/2022 What Is The Highest Grade Or Level Of School You Have Completed Or The Highest Degree You Have Received? [id number] Information not available 04/17/2023 How Many Days Of Moderate To Strenuous Exercise, Like A Brisk Walk, Did You Do In The Last 7 Days? 0 [email or web address] Information not available 05/06/2024 Have There Been Any Changes To Your Family Or Social Situation? No Information not available 04/17/2023 What Is The Fluoride Status Of Your Home? Fluoridated Information not available 04/17/2023 Are There Any Guns Present In Your Home? Yes [email or web address] Information not available 05/06/2024 Do You Use Insect Repellent Routinely? No Information not available 04/17/2023 Where Do You Live? SingleLevelHouse With Basement Information not available 04/17/2023 Presence Of Domestic Violence No [email or web address] Information not available 05/06/2024 Guns Present In The Home? Yes [email or web address] Information not available 05/06/2024 Are You Able To Care For Yourself? Yes [email or web address] Information not available 05/06/2024 Are You Blind Or Do Yo Have Difficulty Seeing? No [email or web address] Information not available 05/06/2024 Are You Deaf Or Do You Have Serious Difficulty Hearing? Yes [email or web address] Information not available 05/06/2024 General Stress Level? Low [email or web address] Information not available 05/06/2024 Live Alone Of With Others? Alone [email or web address] Information not available 05/06/2024 Do You Have A Medical Power Of Insurance Policy Clerk? Yes [email or web address] Information not available 05/06/2024 What Was The Date Of Your Most Recent Tobacco Screening? 05/06/2024 [email or web address] Information not available 05/06/2024 How Many Children Do You Have? 1 [email or web address] Information not available 05/06/2024 Have You Ever Been Counseled For Unhealthy Alcohol Use? No Information not available 04/17/2023 Do You Have Any Pets? Yes Information not available 04/17/2023 Do You Use Protection During Sex? No [email or web address] Information not available 05/06/2024 What Is Your Relationship Status? [email or web address] [id number] Information not available 11/07/2022 Do You Use Your Seat Belt Or Car Seat Routinely? Yes Information not available 04/17/2023 Are You Sexually Active? Yes [email or web address] Information not available 05/06/2024 Do You Have Smoke And Carbon Monoxide Detectors In Your Home? Yes Information not available 04/17/2023 Are You Passively Exposed To Smoke? No Information not available 04/17/2023 Are There Any Smokers In Your House? No Information not available 04/17/2023 What Types Of Sporting Activities Do You Participate In? None [email or web address] Information not available 05/06/2024 Do You Use Sunscreen Routinely? No Information not available 04/17/2023 Has Tobacco Cessation Counseling Been Provided? No Information not available 04/17/2023 Have You Recently Traveled Abroad? No Information not available 04/17/2023 Do You Have Difficulty Walking Or Climbing Stairs? No Information not available 04/17/2023 Do You Have Any Dietary Restrictions? No Information not available 04/17/2023 How Many Days In The Past Year Have You Consumed 5 Or More Drinks? 0 [email or web address] Information not available 05/06/2024 Sex: Male Functional Status Question Answer Note LastModified by Organizat ion Details LastModified Time Do you use any illicit or recreational drugs? No Information not available 04/17/2023 Do you or have you ever used any other forms of tobacco or nicotine? No Information not available 04/17/2023 What is your level of alcohol consumption? Occasional [id number] Information not available 11/07/2022 Are you currently employed? No [email or web address] Information not available 05/06/2024 Do you have transportation difficulties? No Information not available 04/17/2023 Are you able to walk? [email or web address] Information not available 04/17/2023 Do you have difficulty doing errands alone? No Information not available 04/17/2023 Are you able to care for yourself? Yes Information n ot available 04/17/2023 What is your occupation? Retired Information not available 04/17/2023 Do you have difficulty dressing or bathing? No Information not available 04/17/2023 What is your exercise level? None [email or web address] Information not available 05/06/2024 Mental Status Question Answer Note LastModified by Organizat ion Details LastModified Time Do you feel stressed (tense, restless, nervous, or anxious, or unable to sleep at night)? [id number] [email or web address] Information not available 05/06/2024 Do you have difficulty concentrating, remembering or making decisions? Yes has gotten worse since senior care-has seen neurologist [email or web address] Information not available 05/06/2024 Family History Relationship Description Onset Age of this Age Resolved Age Notes LastModified by Organization Details LastModified Time Mother Depressive disorder [id number] Not available 11/07/2022 21:34:07 Notes:NO ENT Medical History Condition Response ARTHRITIS Y CANCER: SPECIFY Y HYPERTENSION Y Immunizations Vaccine Type Date Status Note Provider Nam e and Address Organization Details Recorded Time COVID-19, mRNA, LNP-S, PF, 100 mcg/0.5mL dose or 50 mcg/0.25mL dose 1 completed Not Available [facility] 10/21/2023 06:29:42 COVID-19, mRNA, LNP-S, PF, 100 mcg/0.5mL dose or 50 mcg/0.25mL dose 1 completed Not Available [facility] 10/21/2023 06:29:42 COVID-19, mRNA, LNP-S, PF, 100 mcg/0.5mL dose or 50 mcg/0.25mL dose 1 completed Not Available [facility] 10/21/2023 06:29:42 Influenza, split virus, quadrivalent, preservative 0 completed Not Available [facility] 10/21/2023 06:29:42 pneumococcal polysaccharide PPV23 2 completed Not Available [facility] 10/21/2023 06:29:42 Pneumococcal conjugate PCV 13 0 completed Not Available [facility] 10/21/2023 06:29:42 Respiratory syncytial virus (RSV) vaccine, unspecified 5 completed JOHN Abbott, [place] [facility] 01/06/2025 15:39:24 Past Encounters Encounter ID Performer Location Encounter Start Date Encounter Closed Date Diagnosis/Indication Diagnosis SNOMED-CT Code Diagnosis ICD10 Code Diagnosis Note [id number] MD GUERRERO Jackson_[facility] [place] [place] Internal Med [address] [facility] [place] [address] 04/20/2021 00:00:00 04/20/2021 13:50:24 [id number] MD GUERRERO Jackson_[facility] [address] [facility] [place] [address] 08/17/2021 00:00:00 08/17/2021 10:47:19 [id number] MD GUERRERO Jackson_[facility] [place] [place] Internal Med [facility] [address] [facility] [place] [address] 12/19/2021 00:00:00 12/19/2021 13:17:41 [id number] Navin Boles MD S_[facility] [place] [place] Internal [place] [id number] [facility] [place] [address] 03/21/2022 00:00:00 03/21/2022 09:51:32 [id number] Navin Boles MD S_[facility] [place] [place] Internal [place] [address] [facility] [place] [address] 04/10/2022 00:00:00 04/10/2022 13:34:45 [id number] Navin Boles MD S_[facility] [place] [place] Internal [address] [address] 08/10/2022 00:00:00 08/10/2022 13:20:59 [id number] Glynn Flood MD S_[facility] [address] [address] 09/26/2022 00:00:00 09/26/2022 10:21:13 [id number] Glynn Flood MD S_[facility] [address] [address] 10/10/2022 00:00:00 10/10/2022 11:59:13 [id number] Navin Boles MD S_[facility] [place] [place] Internal [address] [address] 12/11/2022 09:49:24 12/11/2022 10:15:39 Insomnia 904022943 G47.00 better with trazodone Hyperlipidemia 63964164 E78.5 labs good Malignant neoplasm of prostate 504167817 C61 repeat biopsy=uyen ign in 11/01 Bilateral hearing loss 50756926 H91.93 using hearing aids , needs adjustment Depressive disorder 8828 9007 F32.A going to see new psychiatri st Alcoholism 9107617 F10.2 0 advised to quit Rhinitis 59852204 J00 otc discussed Essential hypertension 94691441 I10 under control Dizziness 374800779 R42 w/u neg, Adult heal th examination 625657898 Z00.00 Colonoscop y- 04/2019 ??? Oscar Prevnar 13- 10/13/2019 DEXA- 05/25/2020 PSA- 08/2022 FLU- 05/2022 COVID- 10/11/20, 11/09/20, 07/26/21 [id number] Navin Boles MD [facility] Internal Med [address] [place] [address] 04/12/2023 09:54:16 04/12/2023 11:19:49 Insomnia 902807764 G47.00 better with trazodone Hyperlipidemia 22832485 E78.5 labs good Malignant neoplasm of prostate 513364148 C61 repeat biopsy=uyen ign in 11/01 Bilateral hearing loss 26667854 H91.93 not using hearing aids , Depressive disorder 3548 9007 F32.A better Alcoholism 1912866 F10.2 0 advised to quit Rhinitis 95668242 J00 otc discussed Essential hypertension 56710311 I10 under control Dizziness 293403283 R42 w/u neg, Adult heal th examination 636402358 Z00.00 Colonoscop y- 04/2019 ??? AndersonPr evnar 13- 10/13/2019DE XA- 05/25/2020 PSA- 08/2022FLU - 2COV ID- 10/11/20, 11/09/20, 07/26/21 [id number] Glynn Flood MD [facility] ENT [place] [address] [facility] [address] [place] [address] 04/17/2023 10:00:08 04/17/2023 10:54:04 Malignant neoplasm of prostate 326897979 C61 :05/2021 TRUSBx = GS 6, 09/20 cores, LLM, <5%cT1c, 89cc, PSA 6.1 10/10/2022 TRUSBx - Benign with chronic inflammati on64cc, no nodules, no median lobe-PERTI NENT IMAGIN2021 Prostate MRI ([facility]) - Negative (64cc)---- ----This patient has a diagnosis of VERY LOW risk prostate cancer. Based on his available clinical informatio n, it appears his malignancy is localized, leaving him with some options in his management .-We discussed all of the options as well as their associated risks and benefits in detail in the office today. We focused on Active Surveillan ce, Surgical Treatment, Radiation Treatment, Androgen Deprivatio n Therapy, and Withholdin g Interventi on. At the end of the clinical encounter, we decided on Active Surveillan ce.PLAN:-C ontinue -q6mos PSA-He is due for another biopsy 10/2025, if PSA's remain within reason-Dis cussed with patient that if there is any interrupti on in his care plan, to reach out to our [facility] offices for assistance and he expressed good understand ing [id number] Navin Boles MD S_[facility] Internal Med [address] [place] [address] 08/12/2023 09:57:59 08/12/2023 10:51:52 Essential hypertension 14335628 I10 under control Hyperlipidemia 01937032 E78.5 labs Insomnia 207244550 G47.0 0 better with trazodone Malignant neoplasm of prostate 657189351 C61 seeing urology Bilateral hearing loss 84789828 H91.93 not using hearing aids , Depressive disorder 3548 9007 F32.A better Alcoholism 0995425 F10.2 0 advised to quit Rhinitis 78462836 J00 otc discussed Dizziness 298687208 R42 w/u neg, has vertigo like symptoms Adult heal th examination 455574905 Z00.00 Colonoscop y- 04/2019 ??? AndersonPr evnar 13- 10/13/2019Pn euovax 23 12/29DEXA- 05/25/2020 PSA- 05/01FLU- 2022 - [facility]- 10/11/20, 11/09/20, 07/26/21 Tinnitus 94528588 H93.11 to see ENT Memory impairment 106662 006 R41.3 to f/u with neuro dr mac [id number] Alexander Rodriguez MD S_[facility] [place] [place] ENT [place] Brooks [address] [place] [address] 10/16/2023 11:43:35 10/21/2023 11:27:47 Bilateral tinnitus 0470125732 102 H93.13 Benign par oxysmal positional vertigo 702612154 H81.10 [id number] Navin Boles MD S_[facility] [place] [place] Internal Med [address] [facility] [place] [address] 12/31/2023 10:45:32 12/31/2023 11:50:50 Essential hypertension 29186225 I10 under control Hyperlipidemia 52948590 E78.5 labs good Insomnia 623599448 G47.0 0 better with trazodone Malignant neoplasm of prostate 191341870 C61 seeing urology Bilateral hearing loss 32712308 H91.93 advised to use hearing aids , Depressive disorder 3548 9007 F32.A better Alcoholism 8602942 F10.2 0 advised to quit Rhinitis 16469741 J00 otc discussed Dizziness 705265811 R42 meds help Adult heal th examination 537534304 Z00.00 Colonoscop y- 04/2019 ??? AndersonPr evnar 13- 10/13/2019Pn euovax 23 12/29DEXA- 05/25/2020 PSA- 05/01FLU- 2022 - [facility]- 10/11/20, 11/09/20, 07/26/21 Tinnitus 20175228 H93.11 not better Memory impairment 688210 006 R41.3 discussed to f/u with neuro dr mac Hypothyroidism 43658250 E03.9 on meds [id number] Navin Boles MD S_[facility] [place] [place] Internal Med [address] [facility] [place] [address] 05/06/2024 10:42:46 05/06/2024 11:46:15 Essential hypertension 20183936 I10 under control Hyperlipidemia 14573197 E78.5 labs next time Insomnia 791043520 G47.0 0 trazodone helps Malignant neoplasm of prostate 295331325 C61 seeing urology Bilateral hearing loss 65501878 H91.93 advised to use hearing aids , Depressive disorder 3548 9007 F32.A under control Alcoholism 4898993 F10.2 0 has quit Rhinitis 32244977 J00 otc discussed Dizziness 100490966 R42 meds help Adult heal th examination 696129189 Z00.00 Colonoscop y- 04/2019 ??? AndersonPr evnar 10/13/2019Pn eumovax 23 12/29DEXA- 05/25/2020 PSA- 10/09/2023 FLU- 2022 - [facility]- 10/11/20, 11/09/20, 07/26/21 Tinnitus 85245466 H93.11 unchanged Memory impairment 111950 006 R41.3 discussed to f/u with neuro dr mac, willing Hypothyroidism 94742060 E03.9 on meds Screening for disorder 930623774 Z13.9 [id number] Navin Boles MD [facility] [place] [place] Internal Med [address] [facility] [place] [address] 08/27/2024 15:05:48 08/27/2024 15:45:39 Essential hypertension 88908355 I10 under control Hyperlipidemia 50479681 E78.5 labs next time Insomnia 844862904 G47.0 0 trazodone helps Malignant neoplasm of prostate 937220682 C61 seeing urology Bilateral hearing loss 98510539 H91.93 advised to use hearing aids , Depressive disorder 3548 9007 F32.A under control Alcoholism 0081012 F10.2 0 has quit Rhinitis 18924793 J00 otc discussed Dizziness 955990993 R42 meds help Adult heal th examination 302677428 Z00.00 Colonoscop y- 04/2019 ??? AndersonPr evnar - 10/13/2019Pn eumovax 23 12/29DEXA- 05/25/2020 PSA- 10/09/2023 FLU- 2023 - [facility]- 10/11/20, 11/09/20, 07/26/21 Tinnitus 51594469 H93.11 unchanged Memory impairment 122158 006 R41.3 discussed to f/u with neuro Hypothyroidism 02855687 E03.9 on meds [id number] Navin Boles MD [facility] Internal Med [address] [facility] [place] [address] 12/30/2024 14:07:18 12/30/2024 15:05:00 Essential hypertension 17872025 I10 under control Hyperlipidemia 14207921 E78.5 labs next time Insomnia 554357538 G47.0 0 trazodone helps Malignant neoplasm of prostate 973110280 C61 seeing urology Bilateral hearing loss 16437396 H91.93 advised to use hearing aids , Depressive disorder 3548 9007 F32.A under control Alcoholism 0275837 F10.2 0 has quit Rhinitis 16015463 J00 otc discussed Dizziness 886502191 R42 meds help Adult heal th examination 759660942 Z00.00 Colonoscop y- 04/2014Pre vnar 13- 10/13/2019Pn eumovax 23 12/29DEXA- 05/25/2020 PSA- 10/09/2023 FLU- 2023 - [facility]- 10/11/20, 11/09/20, 07/26/21sh ingrixRSV ? Tinnitus 46089367 H93.11 unchanged Memory impairment 824595 006 R41.3 discussed to f/u with neuro Hypothyroidism 98200378 E03.9 on meds, UNDER CONTROL Screening for malignant neoplasm of colon 707225702 Z12.11 Health Concerns Section Related Observation LastModified by Organization Detai ls LastModified Time None Recorded Concern Status LastModified by Organization Details LastModified Time None Recorded Advance Directives Directive Y: requested copy to bring t o office Payers Insurance Date Sequence Insurance Name Policy Number Policy Dean Covered Member ID Dean Member ID Guarantor Name 12/27/2024 1 [employer] (MEDICARE REPLACEMENT /ADVANTAGE - PPO) [id number] 1 Augustine Padilla [id number] Augustine Padilla Notes Date Note Type Note Provider Name and Address Organization Details Recorded Time 10/16/2023 text/html right ear ringin g for years. he does a history of noise exposure. He hada normal CTA and MRI. The tinnitus is getting louder. Alexander Rodriguez MD [address] [place] [address], [facility] [address], [place], [address], [facility] [email or web address] 10/16/2023 13:16:50 12/31/2023 text/html He is here today for his routine follow up, compliant to meds, no side effects,HEARING LOSS, MILD, NOT USING HEARING AIDS ALL THE TIME Memory is not good, some times driving, forgetting off and onHypertension- controlled with meds,Med- Amlodipine 5 mg qdDepression- under control with meds, was seeing dr Stoll , now has new psych, mood stable, no anxiety, sleeps wellMed- Viibryd 40 mg qd , Bupropion 150 mg qd Hypothyroidism- on meds, Last labs 11/02 abnormal, meds increasedMeds- Levothyroxine 50mcg once a dayPROSTATE CANCER-High psa has gone up, urology , had biopsy, low grade and being observed,seeing Dr Flood, had biopsy 11/01, no cancer seen, psa being monitored by urologyHyperlipidemi a- need to watch diet , on meds and labs good 08/31 Hypertriglyceridemia - dietMeds- Atorvastatin 20mg dailyInsomnia- meds helpMeds- Trazodone 100 mg dailyNeck pain- getting better, also has left hand symptoms , seen neuro surgery, seen pain management , pain much better since retiredDizziness- vertigo like symptoms, some nauseaseen neurology Dr Mac, had MRI brain, CT brain, carotid Doppler's, echoGets better w=ith meclizine Tinnitus- GETTING WORSE, Saw ENT which sent him to [address] and they both told him that there was nothing that they can do to helpAlcoholism- has quit 2022 , does not have desire to drink since taking Bupropion Navin Boles MD [address] [facility], [facility] [address], [place], [address], [facility] [employer] 12/31/2023 11:21:09 05/06/2024 text/html He is here today for his routine follow up, compliant to meds, no side effects, HEARING LOSS, MILD, NOT USING HEARING AIDS ALL THE TIMEPT IS FASTING Medicare Wellness Exam Hypertension- controlled with medsMed- Amlodipine 5 mg qdDepression- under control with meds, SEEING PSYCH, mood stable, no anxiety, sleeps wellMed- Viibryd 40 mg qd , Bupropion 150 mg qd Hypothyroidism- under controlMeds- Levothyroxine 50mcg once a dayPROSTATE CANCER-High psa has gone up, urology , had biopsy, low grade and being observed,seeing Dr Flood, had biopsy 11/01, no cancer seen, psa being monitored by urologyHyperlipidemi a- need to watch diet , on meds and labs good 08/31 Hypertriglyceridemia - dietMeds- Atorvastatin 20mg dailyInsomnia- meds help, some times takes only 1/ 2Meds- Trazodone 100 mg dailyNeck pain- getting better, also has left hand symptoms , seen neuro surgery, seen pain management , pain much better since retiredDizziness- vertigo like symptoms, some nauseaseen neurology Dr Mac, had MRI brain, CT brain, carotid Doppler's, echoBetter with meclizine Tinnitus- not better, Saw ENT which sent him to [address] and they both told him that there was nothing can be doneAlcoholism- has quit 2022 , does not have desire to drink since taking Bupropion Memory impairment- labs and CT brain were nl, did not see neuro as rec but willing, functioning well, driving without problems Navin Boles MD [address] [facility], [address], [place], [address], [place] [facility] [employer] [facility] [employer] 05/06/2024 14:46:58 08/27/2024 text/html He is here today for his routine follow up, compliant to meds, no side effects,HEARING LOSS, MILD, NOT USING HEARING AIDS ALL THE TIMEPT IS NOT FASTING ( [employer] ) Hypertension- controlled with medsMed- Amlodipine 5 mg qdDepression- under control with meds, SEEING PSYCH, mood stable, no anxiety, sleeps wellMed- Viibryd 40 mg qd , Bupropion 150 mg qd Hypothyroidism- under control,needs labsMeds- Levothyroxine 50mcg once a dayPROSTATE CANCER-High psa has gone up, urology , had biopsy last week, MRI showed swollen LNseeing Dr Flood, Hyperlipidemia- ON MEDS, NEEDS LABS Hypertriglyceridemia - dietMeds- Atorvastatin 20mg dailyInsomnia- meds help, some times takes only 1/ 2Meds- Trazodone 100 mg dailyNeck pain- getting better, also has left hand symptoms , seen neuro surgery, seen pain management , pain much better since retiredDizziness- vertigo like symptoms, some nauseaseen neurology Dr Mac, had MRI brain, CT brain, carotid Doppler's, echoBetter with meclizine Tinnitus- not better, Saw ENT which sent him to [address] they both told him that there was nothing can be doneAlcoholism- has quit 2022 , does not have desire to drink since taking Bupropion Memory impairment- labs and CT brain were nl, Functioning well, driving without problems, has appt with neuro Navin Boles MD [address], [place], [address], [place] - [facility] [employer] 08/27/2024 15:44:00 12/30/2024 text/html He is here today for his routine follow up, compliant to meds, no side effects, HEARING LOSS, NOT USING HEARING AIDS ALL THE TIMEPT IS NOT FASTING ( [employer]ET[employer] ) Hypertension- controlled with meds, labs good 10/03Med- Amlodipine 5 mg qdDepression- mood under control with meds, SEEING PSYCH, mood stable, no anxiety, sleeps wellMed- Viibryd 40 mg qd , Bupropion 150 mg qd Hypothyroidism- under control,needs labsMeds- Levothyroxine 50mcg once a dayPROSTATE CANCER- no treatment, being watched,PSA was going high due to BPH, had embolization done 11/03 , has not seen improvement in symptomsseeing Dr Flood, Hyperlipidemia- labs 10/03, under control Hypertriglyceridemia - dietMeds- Atorvastatin 20mg dailyInsomnia- meds help, some times takes only 1/ 2Meds- Trazodone 100 mg dailyNeck pain- also has left hand symptoms of tingling , seen neuro surgery, seen pain management , pain much better since retiredDizziness- vertigo like symptoms, some nauseaseen neurology had MRI brain, CT brain, carotid Doppler's, echomeclizine was stopped by neurologist Tinnitus- seen different ENT,Alcoholism- has quit 2022 , does not have desire to drink since taking Bupropion Memory impairment- labs and CT brain were nl, Functioning well, driving without problems, SEEN NEUROLOGIST at [place].Meds- Donepezil 5 mg qd 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
--- OUTSIDE RECORDS SUMMARY | 2025-03-17 13:11 | XMS_ITS | Encounter Summary ---
Author Organization [employer] Address [address] [place] [address] Care Team Providers Care Grommet Worker Name Role Phone Paul Boles MD Primary Care Provider [phone] Encounter Details Date Type Department Care Team (Late st Contact Info) Description 10/08/1998 Outpatient Historical HIS MRI DEPT (Excluded Provider) [place] [id number] [facility] [address] [place] [address] Disturbance of skin sensation (Primary Dx) Social History Tobacco Use Types Packs/Day Years Used Date Smoking Tobacco: Never Assessed Sex and Gender Information Value Date Recorded Sex Assigned at Not on file Legal Sex Male 3:48 AM FITTING ROOM CHECKER Gender Identity Not on file Sexual Orientation Not on file documented as of this encounter Plan of Treatment Not on file documented as of this encounter Visit Diagnoses Diagnosis Disturbance of skin sensation- Primary documented in this encounter Care Teams Grommet Worker Relationship Specialty Start Date End Date Paul Boles MD [address] [facility] [address] [place] [address] PCP - General Internal Medicine 04/04/20 documented as of this encounter
--- OUTSIDE RECORDS SUMMARY | 2025-03-17 13:11 | XMS_ITS | Encounter Summary ---
Author Organization [facility] Address 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
[2025-03-17 21:56] LABS: Vitamin B12 597.0 pg/mL (239-931)
== END 2025-03-17 13:04 | disposition home or self-care (01) ==
LOC: ANHGOSHLAB 13:07
PROVIDERS: PCP Internal Medicine; Visit Provider Psychiatry & Neurology Neurology
DX: R41.3 Other amnesia (principal); R26.89 Other abnormalities of gait and mobility; R42 Dizziness and giddiness; E55.9 Vitamin D deficiency, unspecified
CPT/HCPCS: 36415; 82607; 82652; 82746; 83090; 83921; 84207; 84425

== ENCOUNTER 2025-07-13 01:12 | Day surgery (SDC) | payer MEDICARE, SELFPAY ==
[2025-06-30 10:40] VITALS: BMI 26.9
--- OUTSIDE RECORDS SUMMARY | 2025-07-13 01:15 | XMS_ITS | Encounter Summary ---
Author Organization [facility] Address 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 [address] [place] [address] PCP - General Internal Medicine 04/04/20 documented as of this encounter
--- OUTSIDE RECORDS SUMMARY | 2025-07-13 01:15 | XMS_ITS | Encounter Summary ---
Author Organization [employer] Address 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
--- OUTSIDE RECORDS SUMMARY | 2025-07-13 01:15 | XMS_ITS | Encounter Summary ---
Author Organization [employer] Address [address] [place] [address] Care Team Providers Care Copping Machine Operator Name Role Phone Paul Boles MD Primary Care Provider [phone] Encounter Details Date Type Department Care Team (Late st Contact Info) Description 10/08/1998 Outpatient Historical HIS MRI DEPT ([place]cluded Provider[place] [address] 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
--- OUTSIDE RECORDS SUMMARY | 2025-07-13 01:15 | XMS_ITS | Clinical Summary ---
Author Organization [facility] Address [address] [place] [address] Phone Care Team Providers Care Furnace Loader Name Role Phone Paul Boles MD Primary Care Provider [phone] Allergies No known active allergies Medications DIPHENHYDRAMINE [...] oz pure alcohol) Couple of Gin & [place] Juice per day. 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
--- OUTSIDE RECORDS SUMMARY | 2025-07-13 01:15 | XMS_ITS | Clinical Summary ---
Author Organization [facility] Address [address] [place] [address] Care Team Providers Care Armhole Sewer Name Role Phone Paul Boles MD Primary Care Provider [phone] Allergies No known active allergies Medications amLODIPine [...] Comments Blood Pressure 159/98 07/21/2020 9:23 AM LEAD QA ANALYST Pulse 74 07/21/2020 9:23 AM LEAD QA ANALYST Temperature 36.3 C (97.3 F) 07/21/2020 7:59 AM LEAD QA ANALYST Respiratory Rate 16 07/21/2020 9:23 AM LEAD QA ANALYST Oxygen Saturation 100% 07/21/2020 9:23 AM LEAD QA ANALYST Inhaled Oxygen Concentration - - Weight 77.1 kg (170 lb) 07/21/2020 7:59 AM LEAD QA ANALYST Height 162.6 cm (5' 4) 07/11/2020 8:01 AM LEAD QA ANALYST Body Mass Index 29.18 07/11/2020 8:01 AM LEAD QA ANALYST Plan of Treatment Not on file Goals [...] home safety. Insurance AETNA MEDICARE AETNA MEDICARE [facility] Address: [address] [place] [address] Care Teams Armhole Sewer Relationship Specialty Start Date End Date Paul Boles MD PCP - General 04/19/20
[2025-07-13 06:48] VITALS: BP 115/91; PULSE 71; RESP 18; TEMP 36.4; O2SAT 100
[2025-07-13] MEDS: LACTATED RINGERS 1,000 ML 150 ML IV CONT (06:56)
--- NOTE | 2025-07-13 07:20 | WPDANESEPPF ---
Anes - Initial Pre Proc Eval Procedure: Operation Date: 07/13/25 08:00 Proposed Procedures p Screening Colonoscopy - Howard Maya MD Date/Time: 07/13/25 07:20 Surgeon: Howard Maya MD Pre Op Diagnosis: Encounter for screening for malignant neoplasm of Patient Data Age: 74 Gender: M Height: 1.63 m Weight: 72.1 kg Last Vital Signs Temp 97.6 F 07/13/25 06:48 Pulse 71 07/13/25 06:48 Resp 18 07/13/25 06:48 BP 115/91 H 07/13/25 06:48 Pulse Ox 100 07/13/25 06:48 O2 Del Method Room Air 07/13/25 06:48 Allergies Allergy/AdvReac Type Severity Reaction Status Date / Time No Known Allergies Allergy Unknown Verified 07/13/25 06:45 Home Medications ?Medication ?Instructions ?Recorded ?Confirmed ?Type amlodipine 5 mg tablet 5 mg PO DAILY 04/13/22 06/30/25 History cetirizine 10 mg tablet (24Hour 10 mg PO DAILY 04/13/22 06/30/25 History Allergy) [id number] 120 mcg-lutein 2 tablet PO DAILY 04/13/22 06/30/25 History 150 mcg-herb 50 mg chewable tablet (Alive Men's 50 Plus Multivitamin) trazodone 50 mg tablet 50 mg PO QHS PRN sleep 04/13/22 06/30/25 History vilazodone 40 mg tablet (Viibryd) 20 mg PO DAILY 04/13/22 06/30/25 History bupropion HCl 300 mg 24 hr tablet, 150 mg PO QAM 11/30/24 06/30/25 History extended release levothyroxine 25 mcg capsule 50 mcg PO DAILY 11/30/24 06/30/25 History memantine 5 mg tablet (Namenda) 5 mg PO BID #60 tabs 04/06/25 06/30/25 Rx atorvastatin 40 mg tablet (Lipitor) 40 mg PO QHS #90 tabs 04/12/25 06/30/25 Rx Patient hx anesthesia problems: none Family hx anesthesia problems: none Results Review: All pre-operative results and documents have been reviewed as part of the pre-operative evaluation. [facility] Past Medical History Medical History MCI (mild cognitive impairment) Prostate cancer Neck pain Bilateral hearing loss Insomnia Depressive disorder Hyperlipemia Family History Family History Mother Depression Social History Social History Social History: never smoker Smoking status: Never smoker Alcohol intake: never Substance use: never Do You Feel Safe in your Home?: Yes Lack of Transportation: No Lack of Food: Never True Current Housing: I Have Housing Concerned About Future Housing: No Difficulty Paying Gas/Electric Bills: No Difficulty Paying for Meds: No Currently Unemployed: No Education: High School Diploma/GED Difficulty w/ Childcare or Family Care: No Anes - Eval Final PreProcedure Day of Procedure 07/13/25 07:20 Patient weight: normal Lungs: normal air movement Airway: Mallampati scale class II Neurological: alert and oriented Last oral intake: >/= 8 hours ASA classification: II Emergent: no Anesthetic plan: proceed Anesthesia type and monitoring: general GIVS and standard monitoring Results Review: All pre-operative results and documents have been reviewed as part of the pre-operative evaluation. HTN, hyperlipidemia, hypothyroidism, active walking 1-2 fos, no cp or sob. Informed Consent: The patient's anesthetic plan and its attendant risks and benefits were discussed with the patient/family/POA. Questions were solicited and answers provided to the satisfaction of the patient/family/POA.
--- NOTE | 2025-07-13 07:50 | PM.IMHP ---
H&P: HPI History of Present Illness Date/Time: 07/13/25 07:50 Chief Complaint: Screening colonoscopy Narrative: This is the patient's 2nd colonoscopy, the previous 1 was 10 years ago.. There are no GI symptoms and there is no family history of colorectal cancer. Review of Systems Review of Systems: All systems reviewed & are unremarkable except as noted in HPI and below PMFSH Past Medical History Medical History MCI (mild cognitive impairment) Prostate cancer Neck pain Bilateral hearing loss Insomnia Depressive disorder Hyperlipemia Family History Family History Mother Depression Social History Social History Social History: never smoker Smoking status: Never smoker Alcohol intake: never Substance use: never Do You Feel Safe in your Home?: Yes Lack of Transportation: No Lack of Food: Never True Current Housing: I Have Housing Concerned About Future Housing: No Difficulty Paying Gas/Electric Bills: No Difficulty Paying for Meds: No Currently Unemployed: No Education: High School Diploma/GED Difficulty w/ Childcare or Family Care: No Meds Home Medications and Allergies Home Medications ?Medication ?Instructions ?Recorded ?Confirmed ?Type amlodipine 5 mg tablet 5 mg PO DAILY 04/13/22 06/30/25 History cetirizine 10 mg tablet (24Hour 10 mg PO DAILY 04/13/22 06/30/25 History Allergy) [id number]-hja-fgnbm 120 mcg-lutein 2 tablet PO DAILY 04/13/22 06/30/25 History 150 mcg-herb 50 mg chewable tablet (Alive Men's 50 Plus Multivitamin) trazodone 50 mg tablet 50 mg PO QHS PRN sleep 04/13/22 06/30/25 History vilazodone 40 mg tablet (Viibryd) 20 mg PO DAILY 04/13/22 06/30/25 History bupropion HCl 300 mg 24 hr tablet, 150 mg PO QAM 11/30/24 06/30/25 History extended release levothyroxine 25 mcg capsule 50 mcg PO DAILY 11/30/24 06/30/25 History memantine 5 mg tablet (Namenda) 5 mg PO BID #60 tabs 04/06/25 06/30/25 Rx atorvastatin 40 mg tablet (Lipitor) 40 mg PO QHS #90 tabs 04/12/25 06/30/25 Rx Allergies Allergy/AdvReac Type Severity Reaction Status Date / Time No Known Allergies Allergy Unknown Verified 07/13/25 06:45 Vital Signs Vital Signs - 24 hr 07/13/25 06:48 Temperature 97.6 F Pulse Rate 71 Respiratory Rate 18 Blood Pressure 115/91 H Pulse Oximetry 100 Oxygen Delivery Room Air Exam Const: General: cooperative and healthy appearing Resp: Effort & Inspection: normal respiratory effort and able to speak in complete sentences Auscultation: clear to auscultation bilaterally Cardio: Rate: regular rate Rhythm: regular rhythm GI: Inspection: normal to inspection GI Palp: No No hepatosplenomegaly present Auscultation: normal bowel sounds Rectal Exam: deferred Skin: General skin exam: normal color Psych: Appearance: grossly normal Mental Status: mental status grossly normal Assessment and Plan Assessment and plan (1) Encounter for screening colonoscopy: Code(s): Z12.11 - Encounter for screening for malignant neoplasm of colon Status: Acute Assessment and Plan: The patient is deemed a good candidate for the procedure. Consent signed. Will proceed.
[2025-07-13] MEDS: SIMETHICONE ORAL SUSPENSION 20 MG/0.3 ML 30 ML BOTTLE 0.6 ML IRRIGATION (08:08)
[2025-07-13 08:20] VITALS: BP 109/74; PULSE 68; RESP 18; O2SAT 98
[2025-07-13 08:30] VITALS: BP 107/71; PULSE 60; RESP 15; O2SAT 100
[2025-07-13 08:40] VITALS: BP 120/83; PULSE 65; RESP 22; O2SAT 100
== END 2025-07-13 08:52 | disposition home or self-care (01) ==
PROVIDERS: PCP Internal Medicine; Referring Provider Internal Medicine; Visit Provider Internal Medicine Gastroenterology
PROC: 0DJD8ZZ Inspection of Lower Intestinal Tract, Via Natural or Artificial Opening Endoscopic (ICD-10-PCS; CPT 45378; principal; 2025-07-13 08:00)
DX: Z12.11 Encounter for screening for malignant neoplasm of colon (principal); E78.5 Hyperlipidemia, unspecified; E03.9 Hypothyroidism, unspecified; I10 Essential (primary) hypertension; G31.84 Mild cognitive impairment of uncertain or unknown etiology; G47.00 Insomnia, unspecified; F32.A Depression, unspecified; Z85.46 Personal history of malignant neoplasm of prostate
CPT/HCPCS: G0105; J2003; J2704; J7120